=== PATIENT | male | born 1980 | race Caucasian/White ===

== ENCOUNTER 2017-12-23 04:22 | Emergency (ER) | payer OTHER ==
[~2017-12-23] VITALS: Ht 188 cm; Wt 109.5 kg
[~2017-12-23 04:22] MED LIST: DPKSR250 PO; IBUP-1050 PO; METH500T37 PO; PRLSR20 PO; SULF500T36 PO
[2017-12-23 04:26] VITALS: TEMP 37.1; Ht 188 cm; Wt 109.5 kg
[2017-12-23] MEDS ORDERED: ONDANSETRON INJ 2 MG/ML 2 ML VIAL IV STA (04:53)
[2017-12-23] MEDS ORDERED: [UNRECOGNIZED DRUG - REMARK] PO (04:57)
[2017-12-23] MEDS ORDERED: DPKSR500 PO (04:57)
[2017-12-23] MEDS ORDERED: SODIUM CHLORIDE 0.9% 1000ML 1,000 ML IV ONE ×2 (05:00)
[2017-12-23] MEDS ORDERED: MoRPHine SULFATE 4 MG/ML 1 ML CARP\\VIAL IV PRN (05:00)
[2017-12-23 05:15] LABS: BASO % 0.2 %; BASO ABS # 0.01 K/uL (0-0.2); EOS % 0.2 %; EOS ABS # 0.01 K/uL (0-0.5); HEMATOCRIT 49.2 % (42-52); HEMOGLOBIN 16.4 g/dL (14.0-18.0); IG# 0.01 K/uL (0.00-0.02); LYMPH % 15.7 %; LYMPH ABS # 0.92 K/uL (1.2-3.4); MEAN CELL VOLUME 87.9 fL (80-100); MEAN CORPUSCULAR HEMOGLOBIN 29.3 pg (25-34); MEAN CORPUSCULAR HGB CONC 33.3 g/dl (32-36); MEAN PLATELET VOLUME 9.6 fL (7.4-10.4); MONO % 8.7 %; MONO ABS # 0.51 K/uL (0.11-0.59); PLATELET COUNT 211 K/uL (130-400); RED CELL DISTRIBUTION WIDTH CV 13.3 % (11.5-14.5); RED CELL DISTRIBUTION WIDTH SD 42.8 fL (36.4-46.3); WHITE BLOOD COUNT 5.86 K/uL (4.8-10.8)
[2017-12-23] MEDS ORDERED: OPTIRAY 320 IV PRN (05:15)
[2017-12-23 05:36] LABS: ALBUMIN 3.7 gm/dl (3.4-5.0); CALCIUM 8.8 mg/dl (8.5-10.1); CREATININE 1.03 mg/dl (0.60-1.40); POTASSIUM 3.7 mmol/L (3.5-5.1)
[2017-12-23 05:39] LABS: TOTAL PROTEIN 8.4 gm/dl (6.4-8.2)
--- NOTE | 2017-12-23 07:37 | DIAGNOSTIC IMAGING REPORT ---
ABD/PELVIS IV AND ORAL CONT CT DOSE: 849.47 mGy.cm HISTORY: Pain. Nausea. Small parenchymal infiltrate anterior margin right middle lobe. Lung bases otherwise are clear. Abd pain. Crohns history. TECHNIQUE: Multiaxial CT images of the abdomen and pelvis were performed following the use of intravenous and oral contrast. A dose lowering technique was utilized adhering to the principles of ALARA. COMPARISON STUDY: None. FINDINGS: Lung bases are clear. Liver spleen and pancreas are unremarkable. Kidneys enhance uniformly. No evidence for hydronephrosis. Small bowel pattern suggests a minimal nonobstructive ileus. The appendix is identified and appears unremarkable. Several small reactive mesenteric nodes. Bladder is midline. There is no free fluid within the pelvic cul-de-sac. The colonic pattern is considered nonobstructive. IMPRESSION: 1. Mild nonobstructive ileus. 2. Otherwise negative abdomen and pelvis. The above report was generated using voice recognition software. It may contain grammatical, syntax or spelling errors. Electronically signed by: Rob Mcdonald M.D. 12/23/2017 7:36 AM Dictated Date/Time: 12/23/2017 7:31 AM
[2017-12-23] MEDS ORDERED: ONDA4TAB10 SL (07:55)
[2017-12-23] MEDS ORDERED: ONDANSETRON HOME PACK 4MG OD TAB PO ONE (08:00)
[2017-12-23] MEDS ORDERED: NORCO 5/325MG HOME PACK PO ONE (08:00)
[2017-12-23 08:14] VITALS: BP 104/87; PULSE 93; O2SAT 94
--- NOTE | 2017-12-23 08:33 | EMERGENCY ROOM VISIT NOTE ---
History First contact with patient: 04:36 Chief Complaint: ABDOMINAL PAIN Stated Complaint: ABD PAIN Nursing Triage Summary: Patient notes nausea and vomiting since yesterday, worse tonight. Patient notes that he is unable to keep fluids down and concerned for dehydration. +Hx Crohns. History of Present Illness The patient is a 37 year old male who presents to the Emergency Room with complaints of nausea, vomiting, and abdominal cramping for the past 24 hours. The patient has had 4 or 5 episodes of vomiting and is having difficulty tolerating fluids as this worsens his symptoms. The patient has a history of Crohn's disease in the past and follows with Dr. Stein locally. The patient does not believe this feels consistent with a Crohn's flare, as the pain is more of a cramping and not strong. The patient rates his discomfort a 7 /10. No diarrhea or blood in stool. He has not had fever, chills, chest pain, chest tightness, or shortness of breath. He has not tried anything over-the- counter medication was for his symptoms. Review of Systems More than 10 systems were reviewed and otherwise negative with the exception of history of present illness. Past Medical/Surgical History History of Crohn's disease Social History Smoking Status: Never Smoker Alcohol Use: none Drug Use: none Marital Status: Housing Status: lives with significant other Occupation Status: employed Current/Historical Medications Scheduled Divalproex Sodium (Divalproex Sodium ER), 500 MG PO DAILY Ibuprofen (Advil), 200-600 MG PO Q4H Omeprazole (Prilosec), 20 MG PO DAILY Ondasetron Odt (Zofran Odt), 4 MG SL Q6H Sulfasalazine (Azulfidine), 1,000 MG PO BID [Unknown Crohn's Med], 1 DOSE PO DAILY Physical Exam Vital Signs Date Time Temp Pulse Resp B/P (MAP) Pulse Ox O2 Delivery O2 Flow Rate FiO2 12/23/17 08:14 93 17 104/87 94 Room Air 12/23/17 07:14 96 18 126/85 94 Room Air 12/23/17 06:44 96 18 112/76 97 Room Air 12/23/17 06:01 75 18 115/71 94 Room Air 12/23/17 04:26 37.1 114 18 126/69 95 Room Air Physical Exam VITALS: Vitals are noted on the nurse's note and reviewed by myself. Vital signs stable. GENERAL: Well-developed, well-nourished, white male, who appears mildly uncomfortable in his ER bed HEAD: Normocephalic atraumatic. MOUTH: Mucous membranes moist. Tonsils are not enlarged. Pharynx without erythema, blood, or exudate. Uvula midline. Airway patent. NECK: Supple without nuchal rigidity. No lymphadenopathy. No thyromegaly. Cervical spine is nontender. HEART: Regular rate and rhythm without murmurs gallops or rubs. LUNGS: Clear to auscultation bilaterally without wheezes, rales or rhonchi. No retractions or accessory muscle use. ABDOMEN: Positive normal bowel sounds x 4. Soft, nontender, without masses or organomegaly. No guarding or rebound tenderness. MUSCULOSKELETAL: No muscle atrophy, erythema, or edema noted. Full range of motion in all extremities. Medical Decision & Procedures ER Provider Diagnostic Interpretation: ABD/PELVIS IV AND ORAL CONT CT DOSE: 849.47 mGy.cm HISTORY: Pain. Nausea. Small parenchymal infiltrate anterior margin right middle lobe. Lung bases otherwise are clear. Abd pain. Crohns history. TECHNIQUE: Multiaxial CT images of the abdomen and pelvis were performed following the use of intravenous and oral contrast. A dose lowering technique was utilized adhering to the principles of ALARA. COMPARISON STUDY: None. FINDINGS: Lung bases are clear. Liver spleen and pancreas are unremarkable. Kidneys enhance uniformly. No evidence for hydronephrosis. Small bowel pattern suggests a minimal nonobstructive ileus. The appendix is identified and appears unremarkable. Several small reactive mesenteric nodes. Bladder is midline. There is no free fluid within the pelvic cul-de-sac. The colonic pattern is considered nonobstructive. IMPRESSION: 1. Mild nonobstructive ileus. 2. Otherwise negative abdomen and pelvis. Laboratory Results 12/23/17 05:04 Red Blood Count 5.60, Mean Corpuscular Volume 87.9, Mean Corpuscular Hemoglobin 29.3, Mean Corpuscular Hemoglobin Concent 33.3, Mean Platelet Volume 9.6, Neutrophils (%) (Auto) 75.0, Lymphocytes (%) (Auto) 15.7, Monocytes (%) (Auto) 8.7, Eosinophils (%) (Auto) 0.2, Basophils (%) (Auto) 0.2, Neutrophils # (Auto) 4.40, Lymphocytes # (Auto) 0.92, Monocytes # (Auto) 0.51, Eosinophils # (Auto) 0.01, Basophils # (Auto) 0.01 12/23/17 05:04 Test 12/23/17 05:04 White Blood Count 5.86 K/uL (4.8-10.8) Red Blood Count 5.60 M/uL (4.7-6.1) Hemoglobin 16.4 g/dL (14.0-18.0) Hematocrit 49.2 % (42-52) Mean Corpuscular Volume 87.9 fL (80-100) Mean Corpuscular Hemoglobin 29.3 pg (25-34) Mean Corpuscular Hemoglobin Concent 33.3 g/dl (32-36) Platelet Count 211 K/uL (130-400) Mean Platelet Volume 9.6 fL (7.4-10.4) Neutrophils (%) (Auto) 75.0 % Lymphocytes (%) (Auto) 15.7 % Monocytes (%) (Auto) 8.7 % Eosinophils (%) (Auto) 0.2 % Basophils (%) (Auto) 0.2 % Neutrophils # (Auto) 4.40 K/uL (1.4-6.5) Lymphocytes # (Auto) 0.92 K/uL (1.2-3.4) Monocytes # (Auto) 0.51 K/uL (0.11-0.59) Eosinophils # (Auto) 0.01 K/uL (0-0.5) Basophils # (Auto) 0.01 K/uL (0-0.2) RDW Standard Deviation 42.8 fL (36.4-46.3) RDW Coefficient of Variation 13.3 % (11.5-14.5) Immature Granulocyte % (Auto) 0.2 % Immature Granulocyte # (Auto) 0.01 K/uL (0.00-0.02) Erythrocyte Sedimentation Rate 17 mm/hr (0-14) Anion Gap 5.0 mmol/L (3-11) Est Creatinine Clear Calc Drug Dose 128.1 ml/min Estimated GFR () 106.3 Estimated GFR (Non- 91.7 BUN/Creatinine Ratio 13.8 (10-20) Calcium Level 8.8 mg/dl (8.5-10.1) Total Bilirubin 1.0 mg/dl (0.2-1) Aspartate Amino Transf (AST/SGOT) 16 U/L (15-37) Alanine Aminotransferase (ALT/SGPT) 24 U/L (12-78) Alkaline Phosphatase 65 U/L (45-117) C-Reactive Protein 5.17 mg/dl (0-0.29) Total Protein 8.4 gm/dl (6.4-8.2) Albumin 3.7 gm/dl (3.4-5.0) Globulin 4.7 gm/dl (2.5-4.0) Albumin/Globulin Ratio 0.8 (0.9-2) Lipase 103 U/L (73-393) Medications Administered Medications (Trade) Dose Ordered Sig/Karlos Route Start Time Stop Time Status Last Admin Dose Admin Sodium Chloride 1,000 ml @ 999 mls/hr Q1H1M ONCE IV 12/23/17 05:00 12/23/17 06:00 DC 12/23/17 05:02 999 MLS/HR Sodium Chloride 1,000 ml @ 999 mls/hr Q1H1M ONCE IV 12/23/17 05:00 12/23/17 06:00 DC 12/23/17 05:02 999 MLS/HR Morphine Sulfate (MoRPHine SULFATE INJ) 4 mg Q1H PRN IV 12/23/17 05:00 01/06/18 04:59 12/23/17 05:04 4 MG Ondansetron HCl (Zofran Inj) 4 mg NOW STAT IV 12/23/17 04:53 12/23/17 04:56 DC 12/23/17 05:02 4 MG Acetaminophen/ Hydrocodone Bitart ([place] 5/325mg Home Pack) 1 homepack UD ONCE PO 12/23/17 08:00 12/23/17 08:01 DC 12/23/17 08:13 1 HOMEPACK Ondansetron HCl (ZOFRAN ODT 4MG Home Pack) 1 homepack UD ONCE PO 12/23/17 08:00 12/23/17 08:01 DC 12/23/17 08:13 1 HOMEPACK ED Course Physical exam and history were performed. Nursing notes, EMR, and Medication List were personally reviewed. Patient appears to have nausea and vomiting symptoms for the past 24 hours. IV access was established and labs were obtained. Patient was hydrated with 2 L normal saline and given IV Zofran for comfort. He was given morphine for his pain. Because of his symptoms and history of Crohn's I did elect perform a CT scan with IV and oral contrast of the abdomen and pelvis. The patient's blood work is as above and was reviewed. He does not have a significantly elevated white blood cell count, gross anemia, bandemia, or significant electrolyte imbalance. Lipase and transaminases are not diagnostic. His sed rate and CRP are mildly elevated. His CT scan is as above and does not show acute findings within the abdomen or pelvis. There is mention of possible infiltrate, however the patient is not having pulmonary symptoms at this time, and this can be monitored. His abdominal series does not seem to show a distinct Crohn's exacerbation. On reevaluation the patient does not have any worsening of his symptoms. He feels much better and is no longer nauseated. After hydration he states his symptoms markedly improved. I discussed options of care with the patient and he does seem well for discharge home. The patient will be given a home pack of Vicodin as well as a prescription for Zofran. He is to follow-up with his primary care physician in the next 1-2 days. He was otherwise invited back to the ER with any new, worsening, or concerning symptoms. The chart was completed utilizing [employer] Voice Recognition Software. Grammatical errors, random word insertions, pronoun errors, and incomplete sentences are an occasional consequence of this system due to software limitations, ambient noise, and hardware issues. Any formal questions or concerns about the content, text, or information contained within the body of this dictation should be directly addressed to the provider for clarification. . Medical Decision Differential diagnosis: Etiologies such as gastroenteritis, food borne illness, infections, appendicitis , diverticulitis, inflammatory bowel disease, obstruction, GI bleed, biliary pathology, as well as others were entertained. Impression Primary Impression: Nausea and vomiting Additional Impression: Abdominal discomfort Departure Information Dispostion Home / Self-Care Condition GOOD Prescriptions Ondasetron Odt (ZOFRAN ODT) 4 Mg Tab 4 MG SL Q6H for Nausea, #12 TAB Prov: Jameel Rogers PA-C 12/23/17 Forms Call Back Authorization, HOME CARE DOCUMENTATION FORM, Work Instructions, Additional Instructions: Patient was seen and evaluated today in the emergency department fo medical care. Return to work on 12/25/2017. Please excuse. IMPORTANT VISIT INFORMATION Patient Instructions [facility] Additional Instructions You were seen and evaluated today on an emergency basis only. This is not a substitute for, or an effort to provide, complete comprehensive medical care. It is not possible to recognize and treat all injuries or illnesses in a single emergency department visit. For this reason it is recommended that you followup with your primary care physician for ongoing care and evaluation. [place] (hydrocodone/acetaminophen) 5/325 mg (homepack) every 6 hours as needed for worsening breakthrough pain. Do not drink or drive on [place]. This medication will likely make you tired. Do not take [place] and Tylenol at the same time as both contain acetaminophen. [place] may cause constipation. You may wish to take an [id number] stool softener like Colace if this occurs. Zofran 4 mg ODT: Dissolve 1 tablet every 6 hrs as needed for nausea. You are welcome to return to the emergency department anytime with new, worsening, or concerning symptoms. Work Instructions Additional Work Instructions: Patient was seen and evaluated today in the emergency department for medical care. Return to work on 12/25/2017. Please excuse. Problem Qualifiers Primary Impression: Nausea and vomiting Vomiting type: unspecified Vomiting Intractability: non-intractable Qualified Codes: R11.2 - Nausea with vomiting, unspecified
== END 2017-12-23 08:33 | disposition home or self-care (01) ==
LOC: C.EDB 04:23 → C.EDA 08:33
DX: R11.2 Nausea with vomiting, unspecified (principal); R10.9 Unspecified abdominal pain; K50.90 Crohn's disease, unspecified, without complications; Z79.899 Other long term (current) drug therapy